=== PATIENT | female | born 1970 | race Two or more races ===

== ENCOUNTER 2019-01-01 22:02 | Emergency (ER) | payer SELFPAY | END 2019-01-01 22:56 | disposition left against medical advice (07) | LOC: ER 22:02 | DX: M79.18 Myalgia, other site (principal); Z53.21 Procedure and treatment not carried out due to patient leaving prior to being seen by health care provider ==

== ENCOUNTER 2019-02-16 05:12 | Emergency (ER) | payer MEDICAID ==
[~2019-02-16] VITALS: Ht 167.6 cm; Wt 63.0 kg
[2019-02-16 05:54] VITALS: BP 122/80
== END 2019-02-16 07:15 | disposition home or self-care (01) ==
LOC: ER 05:12
DX: M54.9 Dorsalgia, unspecified (principal); M19.90 Unspecified osteoarthritis, unspecified site; F17.200 Nicotine dependence, unspecified, uncomplicated; F12.10 Cannabis abuse, uncomplicated
CPT/HCPCS: 99282

== ENCOUNTER 2019-02-18 21:02 | Emergency (ER) | payer MEDICAID ==
[~2019-02-18] VITALS: Ht 175.3 cm; Wt 67.0 kg
[2019-02-18 23:24] VITALS: BP 114/55
== END 2019-02-19 03:52 | disposition left against medical advice (07) ==
LOC: ER 21:02
DX: Z53.21 Procedure and treatment not carried out due to patient leaving prior to being seen by health care provider (principal)

== ENCOUNTER 2019-03-21 01:31 | Emergency (ER) | payer MEDICAID ==
[~2019-03-21] VITALS: Ht 175.3 cm; Wt 64.0 kg
[2019-03-21 01:38] VITALS: BP 118/73
== END 2019-03-21 03:31 | disposition left against medical advice (07) ==
LOC: ER 01:31
DX: R52 Pain, unspecified (principal); Z53.21 Procedure and treatment not carried out due to patient leaving prior to being seen by health care provider